=== PATIENT | female | born 1985 | race Two or more races ===

== ENCOUNTER 2020-01-05 14:45 | Emergency (ER) | payer OTHER, SELFPAY ==
[~2020-01-05] VITALS: Ht 170.2 cm; Wt 85.0 kg
[2020-01-05 15:33] VITALS: BP 135/82
== END 2020-01-05 15:34 | disposition home or self-care (01) ==
LOC: ER 14:45
DX: Z03.818 Encounter for observation for suspected exposure to other biological agents ruled out (principal); Z00.00 Encounter for general adult medical examination without abnormal findings
CPT/HCPCS: 99283; C9803; U0003

== ENCOUNTER 2020-06-02 13:38 | Emergency (ER) | payer OTHER ==
[~2020-06-02] VITALS: Ht 165.1 cm; Wt 65.0 kg
[2020-06-02 13:47] VITALS: BP 100/76
== END 2020-06-02 14:58 | disposition home or self-care (01) ==
LOC: ER 13:38
DX: U07.1 COVID-19 (principal)
CPT/HCPCS: 87635; 99283; C9803; 99281